=== PATIENT | male | born 1985 | race Hispanic/Latino ===

== ENCOUNTER 2018-02-11 10:19 | Emergency (ER) | payer SELFPAY ==
[~2018-02-11] VITALS: Ht 182.9 cm; Wt 135.6 kg
[2018-02-11] MEDS ORDERED: ONDANSETRON HCL INJ 2 MG/ML VIAL IV STA (10:33)
[2018-02-11] MEDS ORDERED: SODIUM CHLORIDE 0.9% 1000ML 1,000 ML IV SCH (10:45)
[2018-02-11 12:07] VITALS: BP 160/80
== END 2018-02-11 12:10 | disposition home or self-care (01) ==
LOC: FSED 10:19
DX: R11.2 Nausea with vomiting, unspecified (principal); R42 Dizziness and giddiness; R19.7 Diarrhea, unspecified; K52.9 Noninfective gastroenteritis and colitis, unspecified
CPT/HCPCS: 80053; 85025; 99283; J2405; J7030